=== PATIENT | male | born 1945 | race Caucasian/White ===

== ENCOUNTER 2016-06-18 13:16 | Inpatient (IN) | payer OTHER ==
[~2016-06-18] VITALS: Ht 182.9 cm; Wt 85.0 kg
[~2016-06-18 13:16] MED LIST: ACETAMINOPHEN325 M1 PO; ASPIRIN EC325 MG PO; ASPIRIN81 M2 PO; CARDIZEM CD,CA240 MG PO; DIGOXIN250 MCG PO; DULCOLAX10 MG PR; ELIQUIS5 MG PO; FLEET ENEMA-AD118 ML PR; FOLIC ACID1 MG PO; LEVAQUIN500 MG PO; LEVOFLOXACIN500 MG PO; LIPITOR20 MG PO; LISINOPRIL2.5 MG PO; LOPRESSOR25 MG PO; LORAZEPAM0.5 MG PO; MILK OF MAGN PO; MULTIVITAMIN1 EAC2 PO; NAPROXEN SODIU220 MG PO; SAW PALMETTO80 MG PO; THIAMINE HCL100 MG PO; Thiamine,Vitamin B1 PO; ZYRTEC10 M3 PO
[2016-06-18 14:03] LABS: EOSINOPHIL (%) 0.5 % (0-5); EOSINOPHIL COUNT 0.1 K/uL (0-0.3); HEMATOCRIT 33.6 % (38.0-50.0); IMMATURE GRANULOCYTE (%) 0.4 % (0.0-0.7); IMMATURE GRANULOCYTE COUNT 0.7 K/uL; MCH 29.5 PG (29.0-34.0); MCHC 32.4 G/DL (30.0-36.0); MCV 90.8 FL (86-99); MEAN PLAT.VOLUME 9.7 uM^3 (9.0-12.4); MONOCYTE (%) 5.4 % (3-12); MONOCYTE COUNT 0.8 K/uL (0-0.8); NEUTROPHIL (%) 80.8 % (45-76); NEUTROPHIL COUNT 12.7 K/uL (1.8-6.4); PLATELET COUNT 268 K/uL (156-360); RBC DIS.WIDTH-CV 14.6 % (11.8-14.6); RBC DIS.WIDTH-SD 46.4 % (39-53); WHITE BLOOD COUNT 15.7 K/uL (4.1-10.2)
[2016-06-18 14:20] LABS: CHLORIDE 112 mEq/L (99-109); POTASSIUM 4.7 mEq/L (3.7-5.4); SODIUM 142 mEq/L (136-147)
[2016-06-18 14:21] LABS: GLUCOSE 159 mg/dL (70-99)
[2016-06-18 14:23] LABS: ANION GAP 17 MEQ/L (2-14)
[2016-06-18 14:25] LABS: GFR ESTIMATE (CALCULATED) 46 mL/min/
[2016-06-18 14:26] LABS: UREA NITROGEN (BUN) 17 mg/dL (9-23)
[2016-06-18 14:31] LABS: TROP-I INTERPRETATION NEGATIVE; TROPONIN-I 0.04 ng/mL (0.0-0.30)
[2016-06-18] MEDS ORDERED: LO-DOSE ASPIRIN81 M2 PO (15:53)
[2016-06-18] MEDS ORDERED: SAW PALMETTO160 MG PO (15:54)
[2016-06-18] MEDS ORDERED: ADVIL,NUPRIN,M200 MG PO (15:54)
[2016-06-18 17:08] LABS: BASE EXCESS -6.4 mEq/L (-3 to +3); BICARBONATE 17.7 mEq/L (22-26); COMMENTS - BLOOD GASES A+C+; DEVICE HHFNC; FI02 40 %; METHEMOGLOBIN 1.2 % (0-1.5); O2 FLOW 30 L/MIN; PCO2 30 mm Hg (35-45); PO2 77 mm Hg (80-100); SITE RBR; TOTAL RESP RATE 22 resp/min; pH 7.38 (7.35-7.45)
[2016-06-18 18:05] VITALS: BP 142/74
[2016-06-18 18:23] VITALS: BP 142/74
[2016-06-18 20:00] VITALS: BP 129/75
[2016-06-18 21:06] LABS: INFLUENZA A VIRAL ANTIGEN NEGATIVE; INFLUENZA B VIRAL ANTIGEN NEGATIVE
[2016-06-18 21:21] LABS: TROP-I INTERPRETATION NEGATIVE; TROPONIN-I 0.05 ng/mL (0.0-0.30)
[2016-06-19] VITALS (7 sets, daily range): BP systolic 92–121; BP diastolic 56–91
[2016-06-19 03:01] LABS: TROP-I INTERPRETATION NEGATIVE; TROPONIN-I 0.03 ng/mL (0.0-0.30)
[2016-06-19 06:31] LABS: HEMATOCRIT 30.8 % (38.0-50.0); MCH 29.6 PG (29.0-34.0); MCHC 33.1 G/DL (30.0-36.0); MCV 89.3 FL (86-99); PLATELET COUNT 224 K/uL (156-360); RBC DIS.WIDTH-CV 14.8 % (11.8-14.6); RBC DIS.WIDTH-SD 48.5 % (39-53); RED BLOOD COUNT 3.45 M/uL (4.00-5.50); WHITE BLOOD COUNT 12.1 K/uL (4.1-10.2)
[2016-06-19 06:59] LABS: ANION GAP 14 MEQ/L (2-14); CHLORIDE 108 MEQ/L (99-109); GFR ESTIMATE (CALCULATED) 43 mL/min/; GLUCOSE 145 mg/dL (70-99); POTASSIUM 4.2 MEQ/L (3.7-5.4); SAMPLE HEMOLYSIS CHECK 0; SAMPLE ICTERIC CHECK 0; SAMPLE LIPEMIA CHECK 0; SODIUM 139 MEQ/L (136-147); UREA NITROGEN (BUN) 25 mg/dL (9-23)
[2016-06-20 03:00] VITALS: BP 115/90
[2016-06-20 07:16] LABS: ANION GAP 13 MEQ/L (2-14); CHLORIDE 107 MEQ/L (99-109); GFR ESTIMATE (CALCULATED) 40 mL/min/; GLUCOSE 145 mg/dL (70-99); POTASSIUM 4.4 MEQ/L (3.7-5.4); SAMPLE HEMOLYSIS CHECK 0; SAMPLE ICTERIC CHECK 0; SAMPLE LIPEMIA CHECK 0; SODIUM 138 MEQ/L (136-147)
[2016-06-20 07:17] LABS: HEMATOCRIT 31.4 % (38.0-50.0); MCH 29.1 PG (29.0-34.0); MCHC 32.8 G/DL (30.0-36.0); MCV 88.7 FL (86-99); PLATELET COUNT 277 K/uL (156-360); RBC DIS.WIDTH-SD 48.6 % (39-53); RED BLOOD COUNT 3.54 M/uL (4.00-5.50); UREA NITROGEN (BUN) 44 mg/dL (9-23)
[2016-06-20 07:18] VITALS: BP 118/96
[2016-06-20 07:21] LABS: WHITE BLOOD COUNT 17.3 K/uL (4.1-10.2)
[2016-06-20 11:14] LABS: ADD MIUA? NO; BILIRUBIN NEGATIVE; BLOOD NEGATIVE; COLOR YELLOW ((YELLOW)); GLUCOSE (STRIP) NEGATIVE; KETONES NEGATIVE; LEUKOCYTES NEGATIVE; NITRITE NEGATIVE; PH, URINE 5.5 (5-8); PROTEIN (STRIP) TRACE; SPECIFIC GRAVITY 1.024 (1.000-1.030); UROBILINOGEN 0.2 MG/DL (0.2-1.0)
[2016-06-20 12:10] VITALS: BP 98/65
[2016-06-20 16:39] VITALS: BP 132/73
[2016-06-20 19:00] VITALS: BP 120/76
[2016-06-20 23:33] VITALS: BP 131/73
[2016-06-21 02:44] VITALS: BP 117/66
[2016-06-21 06:39] LABS: HEMATOCRIT 30.7 % (38.0-50.0); MCHC 32.9 G/DL (30.0-36.0); MCV 88.2 FL (86-99); MEAN PLAT.VOLUME 10.3 uM^3 (9.0-12.4); PLATELET COUNT 297 K/uL (156-360); RBC DIS.WIDTH-CV 14.9 % (11.8-14.6); RBC DIS.WIDTH-SD 48.3 % (39-53); RED BLOOD COUNT 3.48 M/uL (4.00-5.50); WHITE BLOOD COUNT 14.9 K/uL (4.1-10.2)
[2016-06-21 07:15] LABS: ANION GAP 11 MEQ/L (2-14); CHLORIDE 111 MEQ/L (99-109); GFR ESTIMATE (CALCULATED) 46 mL/min/; GLUCOSE 152 mg/dL (70-99); POTASSIUM 4.4 MEQ/L (3.7-5.4); SAMPLE HEMOLYSIS CHECK 0; SAMPLE ICTERIC CHECK 0; SAMPLE LIPEMIA CHECK 0; SODIUM 139 MEQ/L (136-147); UREA NITROGEN (BUN) 49 mg/dL (9-23)
[2016-06-21 07:26] VITALS: BP 130/76
[2016-06-21 07:58] LABS: DIGOXIN < 0.3 ng/mL (0.8-2.0)
[2016-06-21] MEDS ORDERED: LEVAQUIN750 MG PO ×2 (09:26→15:46)
[2016-06-21] MEDS ORDERED: VENTOLIN HFA18 GM IH ×2 (09:33→15:46)
[2016-06-21 11:45] VITALS: BP 125/65
[2016-06-21] MEDS ORDERED: SPIRIVA RESPIMAT4 GM IH (14:59)
[2016-06-21] MEDS ORDERED: DILTIAZEM 24HR180 MG PO (15:00)
[2016-06-21] MEDS ORDERED: ELIQUIS5 MG PO (15:00)
[2016-06-21] MEDS ORDERED: ADVAIR HFA120 INHALA IH (15:00)
[2016-06-21] MEDS ORDERED: LOPRESSOR50 MG PO (15:00)
[2016-06-21] MEDS ORDERED: MEDROL DOSEPAK4 MG PO (15:01)
== END 2016-06-21 18:22 | disposition home health service (06) | DRG 189 ==
LOC: EME → EDBD 13:16 → EDOF 16:13 → 4EAST 16:13 → EDOF 16:13 → 4EAST 17:54
PROVIDERS: Emergency Medicine; Internal Medicine; Internal Medicine Pulmonary Disease; Physician Assistant Medical
DX: J96.01 Acute respiratory failure with hypoxia (principal); I48.2 Chronic atrial fibrillation; J44.0 Chronic obstructive pulmonary disease with (acute) lower respiratory infection; J18.9 Pneumonia, unspecified organism; J44.1 Chronic obstructive pulmonary disease with (acute) exacerbation; E87.2 Acidosis; I13.0 Hypertensive heart and chronic kidney disease with heart failure and stage 1 through stage 4 chronic kidney disease, or unspecified chronic kidney disease; I50.22 Chronic systolic (congestive) heart failure; N18.4 Chronic kidney disease, stage 4 (severe); I48.92 Unspecified atrial flutter; I45.2 Bifascicular block; I42.9 Cardiomyopathy, unspecified; I69.354 Hemiplegia and hemiparesis following cerebral infarction affecting left non-dominant side; I25.10 Atherosclerotic heart disease of native coronary artery without angina pectoris; D64.9 Anemia, unspecified; F01.50 Vascular dementia, unspecified severity, without behavioral disturbance, psychotic disturbance, mood disturbance, and anxiety; E78.5 Hyperlipidemia, unspecified; F17.200 Nicotine dependence, unspecified, uncomplicated; Z95.5 Presence of coronary angioplasty implant and graft; Z88.2 Allergy status to sulfonamides; Z88.7 Allergy status to serum and vaccine; Z79.82 Long term (current) use of aspirin; I25.2 Old myocardial infarction; Z91.14 Patient's other noncompliance with medication regimen
CPT/HCPCS: 36600; 71010; 80048; 80048 91; 80162; 81003; 82803; 83605; 84484; 85025; 85027; 87040; 87502; 93005; 94640; 94640 76; 94760; 94799; 99202; 99281; 99285; J0692; J1160; J1956; J2930; J7030; J7050; J7512; J7644

== ENCOUNTER 2016-07-04 11:49 | Inpatient (IN) | payer OTHER ==
[~2016-07-04] VITALS: Ht 182.9 cm; Wt 91.0 kg
[~2016-07-04 11:49] MED LIST changes: +ADVAIR HFA120 INHALA IH; +ADVIL,NUPRIN,M200 MG PO; +DILTIAZEM 24HR180 MG PO; +LEVAQUIN750 MG PO; +LO-DOSE ASPIRIN81 M2 PO; +LOPRESSOR50 MG PO; +MEDROL DOSEPAK4 MG PO; +SAW PALMETTO160 MG PO; +SPIRIVA RESPIMAT4 GM IH; +VENTOLIN HFA18 GM IH
[2016-07-04 12:44] LABS: HEMATOCRIT 33.6 % (38.0-50.0); MCH 28.8 PG (29.0-34.0); MCHC 32.4 G/DL (30.0-36.0); MCV 88.7 FL (86-99); RBC DIS.WIDTH-CV 15.3 % (11.8-14.6); RBC DIS.WIDTH-SD 48.6 % (39-53); RED BLOOD COUNT 3.79 M/uL (4.00-5.50); WHITE BLOOD COUNT 19.3 K/uL (4.1-10.2)
[2016-07-04 12:47] LABS: EOSINOPHIL (%) 1.3 % (0-5); EOSINOPHIL COUNT 0.3 K/uL (0-0.3); IMMATURE GRANULOCYTE (%) 0.6 % (0.0-0.7); IMMATURE GRANULOCYTE COUNT 1.1 K/uL; LYMPHOCYTE COUNT 2.7 K/uL (1.0-2.8); MONOCYTE (%) 3.5 % (3-12); MONOCYTE COUNT 0.7 K/uL (0-0.8); NEUTROPHIL (%) 80.7 % (45-76); NEUTROPHIL COUNT 15.6 K/uL (1.8-6.4)
[2016-07-04 13:00] LABS: CHLORIDE 110 mEq/L (99-109); POTASSIUM 4.7 mEq/L (3.7-5.4); SODIUM 140 mEq/L (136-147)
[2016-07-04 13:02] LABS: GLUCOSE 228 mg/dL (70-99)
[2016-07-04 13:03] LABS: ANION GAP 17 MEQ/L (2-14)
[2016-07-04 13:04] LABS: INTER. NORMALIZED RATIO 1.1; PROTHROMBIN TIME 11.5 (9.2-11.2); PTT 25.8 (25-32)
[2016-07-04 13:06] LABS: UREA NITROGEN (BUN) 17 mg/dL (9-23)
[2016-07-04 13:10] LABS: TROP-I INTERPRETATION NEGATIVE; TROPONIN-I 0.03 ng/mL (0.0-0.30)
[2016-07-04 13:25] LABS: GFR ESTIMATE (CALCULATED) 46 mL/min/
[2016-07-04] MEDS ORDERED: VENTOLIN HFA18 GM IH (13:44)
[2016-07-04] MEDS ORDERED: FLONASE16 G1 BOTH NARES (13:45)
[2016-07-04] MEDS ORDERED: ALEVE220 MG PO (13:45)
[2016-07-04] MEDS ORDERED: ZYRTEC10 M3 PO (13:46)
[2016-07-04 13:56] LABS: MEAN PLAT.VOLUME 9.4 uM^3 (9.0-12.4); PLAT.SUFFICIENCY ADEQUATE; PLATELET COUNT 251 K/uL (156-360); USER ID SDF
[2016-07-04 15:00] VITALS: BP 119/80
[2016-07-04 16:10] VITALS: BP 137/84
[2016-07-04 18:15] VITALS: BP 111/78
[2016-07-04 18:39] VITALS: BP 111/78
[2016-07-04 19:31] LABS: TROP-I INTERPRETATION NEGATIVE; TROPONIN-I 0.08 ng/mL (0.0-0.30)
[2016-07-04 20:43] VITALS: BP 110/80
[2016-07-05] VITALS (9 sets, daily range): BP systolic 70–140; BP diastolic 21–80
[2016-07-05 01:35] LABS: CARBOXY HGB 0.1 % (0-5); METHEMOGLOBIN 1.3 % (0-1.5); PCO2 30 mm Hg (35-45)
[2016-07-05 01:36] LABS: COMMENTS - BLOOD GASES C+; DEVICE VENTILATOR; FI02 100 %; MECHANICAL RATE 16 resp/min; MODE A/C; PEEP 8 CM/H20; PO2 532 mm Hg (80-100); SITE A LINE; TIDAL VOLUME 500 ML; TOTAL RESP RATE 16 resp/min
[2016-07-05 01:37] LABS: pH < 6.91 (7.35-7.45)
[2016-07-05 01:53] LABS: CHLORIDE 114 mEq/L (99-109); SODIUM 143 mEq/L (136-147)
[2016-07-05 01:56] LABS: ANION GAP 26 MEQ/L (2-14)
[2016-07-05 01:57] LABS: TOTAL BILIRUBIN 1.2 mg/dL (0.0-1.0)
[2016-07-05 01:58] LABS: ALKALINE PHOSPHATASE 75 IU/L (3-129)
[2016-07-05 02:00] LABS: UREA NITROGEN (BUN) 24 mg/dL (9-23)
[2016-07-05 02:01] LABS: EOSINOPHIL (%) 0.1 % (0-5); IMMATURE GRANULOCYTE (%) 4.2 % (0.0-0.7); IMMATURE GRANULOCYTE COUNT 4.3 K/uL; LYMPHOCYTE COUNT 1.1 K/uL (1.0-2.8); MCH 28.6 PG (29.0-34.0); MCHC 31.2 G/DL (30.0-36.0); MCV 91.9 FL (86-99); MEAN PLAT.VOLUME 9.5 uM^3 (9.0-12.4); MONOCYTE (%) 7.4 % (3-12); MONOCYTE COUNT 0.8 K/uL (0-0.8); NEUTROPHIL (%) 77.2 % (45-76); PLATELET COUNT 255 K/uL (156-360); RBC DIS.WIDTH-SD 51.4 % (39-53)
[2016-07-05 02:02] LABS: GLUCOSE 63 mg/dL (70-99)
[2016-07-05 02:03] LABS: GFR ESTIMATE (CALCULATED) 29 mL/min/; POTASSIUM 6.1 mEq/L (3.7-5.4)
[2016-07-05 02:05] LABS: INTER. NORMALIZED RATIO 1.7
[2016-07-05 02:06] LABS: METH RESISTANT S AUREUS PCR POSITIVE (NEGATIVE)
[2016-07-05 02:10] LABS: PROBE CHECK PASS
[2016-07-05 02:11] LABS: PROTHROMBIN TIME 17.9 (9.2-11.2); PTT 43.1 (25-32); WHITE BLOOD COUNT 10.3 K/uL (4.1-10.2)
[2016-07-05 02:13] LABS: TROP-I INTERPRETATION NEGATIVE; TROPONIN-I 0.12 ng/mL (0.0-0.30)
[2016-07-05 03:41] LABS: BASE EXCESS -20.3 mEq/L (-3 to +3); CARBOXY HGB 1.4 % (0-5); METHEMOGLOBIN 1.7 % (0-1.5); PCO2 31 mm Hg (35-45)
[2016-07-05 03:42] LABS: BICARBONATE 8.8 mEq/L (22-26); COMMENTS - BLOOD GASES C+; DEVICE VENTILATOR; FI02 30 %; MECHANICAL RATE 16 resp/min; MODE A/C; PEEP 8 CM/H20; PO2 145 mm Hg (80-100); SITE RF A LINE; TIDAL VOLUME 500 ML; TOTAL RESP RATE 16 resp/min; pH 7.06 (7.35-7.45)
[2016-07-05 07:02] LABS: EOSINOPHIL (%) 0 % (0-5); HEMATOCRIT 34.7 % (38.0-50.0); IMMATURE GRANULOCYTE COUNT 2.8 K/uL; LYMPHOCYTE COUNT 1.2 K/uL (1.0-2.8); MCH 28.5 PG (29.0-34.0); MCHC 31.1 G/DL (30.0-36.0); MCV 91.6 FL (86-99); MONOCYTE (%) 8.7 % (3-12); MONOCYTE COUNT 1.2 K/uL (0-0.8); NEUTROPHIL COUNT 11.4 K/uL (1.8-6.4); PLATELET COUNT 258 K/uL (156-360); RBC DIS.WIDTH-CV 15.9 % (11.8-14.6); RED BLOOD COUNT 3.79 M/uL (4.00-5.50); WHITE BLOOD COUNT 14.1 K/uL (4.1-10.2)
[2016-07-05 07:18] LABS: TROP-I INTERPRETATION NEGATIVE; TROPONIN-I 0.23 ng/mL (0.0-0.30)
[2016-07-05 07:52] LABS: INFLUENZA A VIRAL ANTIGEN NEGATIVE; INFLUENZA B VIRAL ANTIGEN NEGATIVE
[2016-07-05 08:07] LABS: HEMATOCRIT 33.9 % (38.0-50.0); MCH 28.7 PG (29.0-34.0); MCHC 31.3 G/DL (30.0-36.0); MCV 91.9 FL (86-99); MEAN PLAT.VOLUME 9.7 uM^3 (9.0-12.4); PLATELET COUNT 248 K/uL (156-360); RBC DIS.WIDTH-SD 51.1 % (39-53); RED BLOOD COUNT 3.69 M/uL (4.00-5.50); WHITE BLOOD COUNT 10.8 K/uL (4.1-10.2)
[2016-07-05 09:02] LABS: ALKALINE PHOSPHATASE 71 IU/L (3-129); ANION GAP 30 MEQ/L (2-14); CHLORIDE 107 MEQ/L (99-109); GFR ESTIMATE (CALCULATED) 26 mL/min/; SAMPLE HEMOLYSIS CHECK 0; SAMPLE ICTERIC CHECK 0; SAMPLE LIPEMIA CHECK 0; SODIUM 146 MEQ/L (136-147); TOTAL BILIRUBIN 1.5 MG/DL (0.0-1.0); UREA NITROGEN (BUN) 29 mg/dL (9-23)
[2016-07-05 09:03] LABS: GLUCOSE 95 mg/dL (70-99)
[2016-07-05 09:46] LABS: BASE EXCESS -10.5 mEq/L (-3 to +3); BICARBONATE 14.6 mEq/L (22-26); CARBOXY HGB 1.4 % (0-5); COMMENTS - BLOOD GASES C+ANA; DEVICE 840 PB; FI02 30 %; MECHANICAL RATE 16 resp/min; METHEMOGLOBIN 1.6 % (0-1.5); MODE AC; PCO2 29 mm Hg (35-45); PEEP 5 CM/H20; PO2 131 mm Hg (80-100); SITE ALINE; TIDAL VOLUME 500 ML; TOTAL RESP RATE 24 resp/min; pH 7.31 (7.35-7.45)
[2016-07-05 10:36] LABS: CHLORIDE 106 mEq/L (99-109); POTASSIUM 5.9 mEq/L (3.7-5.4); SODIUM 148 mEq/L (136-147)
[2016-07-05 10:40] LABS: ANION GAP 30 MEQ/L (2-14)
[2016-07-05 10:42] LABS: ALKALINE PHOSPHATASE 65 IU/L (3-129); GFR ESTIMATE (CALCULATED) 25 mL/min/
[2016-07-05 10:43] LABS: UREA NITROGEN (BUN) 29 mg/dL (9-23)
[2016-07-05 10:45] LABS: GLUCOSE 267 mg/dL (70-99)
[2016-07-05 10:46] LABS: TOTAL BILIRUBIN 1.5 mg/dL (0.0-1.0)
[2016-07-05 15:47] LABS: ADD MIUA? YES; BILIRUBIN SMALL; BLOOD LARGE; GLUCOSE (STRIP) NEGATIVE; KETONES NEGATIVE; LEUKOCYTES LARGE; NITRITE POSITIVE; PROTEIN (STRIP) 30; SPECIFIC GRAVITY 1.029 (1.000-1.030); UROBILINOGEN 0.2 MG/DL (0.2-1.0)
[2016-07-05 15:53] LABS: COLOR YELLOW ((YELLOW))
[2016-07-05 16:18] LABS: BACTERIA 4+; CASTS NONE SEEN /LPF; CRYSTALS NONE SEEN; EPITHELIAL CELLS 2+; MUCUS NONE SEEN; OTHER BUDDING YEAST; WHITE BLOOD CELLS TNTC /HPF (0-5)
[2016-07-05 16:53] LABS: ANION GAP 24 MEQ/L (2-14); CHLORIDE 102 MEQ/L (99-109); GFR ESTIMATE (CALCULATED) 30 mL/min/; GLUCOSE 257 mg/dL (70-99); MAGNESIUM 1.7 mg/dl (1.3-2.7); SAMPLE HEMOLYSIS CHECK 0; SAMPLE ICTERIC CHECK 0; SAMPLE LIPEMIA CHECK 0; SODIUM 145 MEQ/L (136-147); UREA NITROGEN (BUN) 32 mg/dL (9-23)
[2016-07-05 16:54] LABS: POTASSIUM 4.1 MEQ/L (3.7-5.4)
[2016-07-05 17:01] LABS: MCH 27.5 PG (29.0-34.0); MCV 88.7 FL (86-99); RBC DIS.WIDTH-SD 51.6 % (39-53); RED BLOOD COUNT 3.27 M/uL (4.00-5.50)
[2016-07-05 17:04] LABS: PLAT.SUFFICIENCY ADEQUATE; USER ID BW1
[2016-07-05 17:05] LABS: EOSINOPHIL (%) 0 % (0-5); IMMATURE GRANULOCYTE (%) 1.2 % (0.0-0.7); IMMATURE GRANULOCYTE COUNT 0.2 K/uL; LYMPHOCYTE COUNT 1.1 K/uL (1.0-2.8); MEAN PLAT.VOLUME 10.3 uM^3 (9.0-12.4); MONOCYTE (%) 4.5 % (3-12); MONOCYTE COUNT 0.9 K/uL (0-0.8); NEUTROPHIL (%) 88.9 % (45-76); NEUTROPHIL COUNT 17.6 K/uL (1.8-6.4); PLATELET COUNT 167 K/uL (156-360); WHITE BLOOD COUNT 19.8 K/uL (4.1-10.2)
[2016-07-05 18:32] LABS: POINT-OF-CARE METER ID UU14174217
[2016-07-05 22:36] LABS: ANION GAP 16 MEQ/L (2-14); CHLORIDE 104 MEQ/L (99-109); SAMPLE HEMOLYSIS CHECK 0; SAMPLE ICTERIC CHECK 0; SAMPLE LIPEMIA CHECK 0; SODIUM 144 MEQ/L (136-147); UREA NITROGEN (BUN) 23 mg/dL (9-23)
[2016-07-05 22:39] LABS: GFR ESTIMATE (CALCULATED) 46 mL/min/; GLUCOSE 95 mg/dL (70-99)
[2016-07-06] VITALS (8 sets, daily range): BP systolic 76–142; BP diastolic 35–65
[2016-07-06 00:52] LABS: POINT-OF-CARE METER ID UU13113731
[2016-07-06 04:44] LABS: EOSINOPHIL (%) 0 % (0-5); IMMATURE GRANULOCYTE (%) 0.7 % (0.0-0.7); IMMATURE GRANULOCYTE COUNT 1.8 K/uL; LYMPHOCYTE COUNT 0.9 K/uL (1.0-2.8); MCH 28.8 PG (29.0-34.0); MCHC 33.2 G/DL (30.0-36.0); MCV 86.7 FL (86-99); MEAN PLAT.VOLUME 10.2 uM^3 (9.0-12.4); MONOCYTE (%) 3.1 % (3-12); MONOCYTE COUNT 0.8 K/uL (0-0.8); NEUTROPHIL (%) 92.9 % (45-76); NEUTROPHIL COUNT 25.1 K/uL (1.8-6.4); PLATELET COUNT 167 K/uL (156-360); RBC DIS.WIDTH-CV 15.5 % (11.8-14.6); RBC DIS.WIDTH-SD 47.1 % (39-53); RED BLOOD COUNT 3.23 M/uL (4.00-5.50)
[2016-07-06 04:47] LABS: CHLORIDE 107 mEq/L (99-109); POTASSIUM 4.5 mEq/L (3.7-5.4); SODIUM 141 mEq/L (136-147)
[2016-07-06 05:09] LABS: MAGNESIUM 1.9 mg/dL (1.3-2.7)
[2016-07-06 05:10] LABS: GLUCOSE 79 mg/dL (70-99)
[2016-07-06 05:12] LABS: ANION GAP 12 MEQ/L (2-14)
[2016-07-06 05:14] LABS: GFR ESTIMATE (CALCULATED) 58 mL/min/
[2016-07-06 05:15] LABS: UREA NITROGEN (BUN) 17 mg/dL (9-23)
[2016-07-06 05:54] LABS: POINT-OF-CARE METER ID UU14174217
[2016-07-06 06:30] LABS: POINT-OF-CARE METER ID UU14174217
[2016-07-06 07:17] LABS: INTERNAL CONTROL VALID? YES
[2016-07-06 07:26] LABS: POINT-OF-CARE METER ID UU14174217
[2016-07-06 10:43] LABS: ANION GAP 10 MEQ/L (2-14); CHLORIDE 106 MEQ/L (99-109); GFR ESTIMATE (CALCULATED) 58 mL/min/; GLUCOSE 88 mg/dL (70-99); MAGNESIUM 1.9 mg/dl (1.3-2.7); POTASSIUM 4.7 MEQ/L (3.7-5.4); SAMPLE HEMOLYSIS CHECK 0; SAMPLE ICTERIC CHECK 0; SAMPLE LIPEMIA CHECK 0; SODIUM 141 MEQ/L (136-147); UREA NITROGEN (BUN) 17 mg/dL (9-23)
[2016-07-06 11:44] LABS: POINT-OF-CARE METER ID UU14174217; POINT-OF-CARE USER ID 606021424
[2016-07-06 15:50] LABS: HEMATOCRIT 27.6 % (38.0-50.0); MCH 28.5 PG (29.0-34.0); MCHC 32.6 G/DL (30.0-36.0); MCV 87.3 FL (86-99); MEAN PLAT.VOLUME 10.3 uM^3 (9.0-12.4); PLATELET COUNT 136 K/uL (156-360); RBC DIS.WIDTH-SD 51.1 % (39-53); RED BLOOD COUNT 3.16 M/uL (4.00-5.50); WHITE BLOOD COUNT 24.1 K/uL (4.1-10.2)
[2016-07-06 15:52] LABS: EOSINOPHIL (%) 0 % (0-5); IMMATURE GRANULOCYTE (%) 0.5 % (0.0-0.7); IMMATURE GRANULOCYTE COUNT 0.1 K/uL; LYMPHOCYTE COUNT 0.7 K/uL (1.0-2.8); MONOCYTE (%) 3.4 % (3-12); MONOCYTE COUNT 0.8 K/uL (0-0.8); NEUTROPHIL (%) 93.3 % (45-76); NEUTROPHIL COUNT 22.5 K/uL (1.8-6.4)
[2016-07-06 15:55] LABS: POINT-OF-CARE USER ID 606021424
[2016-07-06 16:10] LABS: ANION GAP 8 MEQ/L (2-14); CHLORIDE 105 MEQ/L (99-109); GFR ESTIMATE (CALCULATED) > 59 mL/min/; GLUCOSE 84 mg/dL (70-99); MAGNESIUM 2.1 mg/dl (1.3-2.7); POTASSIUM 4.8 MEQ/L (3.7-5.4); SAMPLE HEMOLYSIS CHECK 0; SAMPLE ICTERIC CHECK 0; SAMPLE LIPEMIA CHECK 0; SODIUM 139 MEQ/L (136-147); UREA NITROGEN (BUN) 14 mg/dL (9-23)
[2016-07-06 16:24] LABS: VANCOMYCIN, TROUGH 7.9 MCG/ML (10-20)
[2016-07-06 17:59] LABS: POINT-OF-CARE METER ID UU14174217; POINT-OF-CARE USER ID 606021424
[2016-07-06 22:51] LABS: ANION GAP 8 MEQ/L (2-14); CHLORIDE 106 MEQ/L (99-109); GFR ESTIMATE (CALCULATED) > 59 mL/min/; GLUCOSE 98 mg/dL (70-99); MAGNESIUM 2.4 mg/dl (1.3-2.7); POTASSIUM 4.7 MEQ/L (3.7-5.4); SAMPLE HEMOLYSIS CHECK 0; SAMPLE ICTERIC CHECK 0; SAMPLE LIPEMIA CHECK 0; SODIUM 138 MEQ/L (136-147); UREA NITROGEN (BUN) 14 mg/dL (9-23)
[2016-07-07] VITALS (7 sets, daily range): BP systolic 105–137; BP diastolic 42–81
[2016-07-07 00:01] LABS: POINT-OF-CARE USER ID RADDRS44
[2016-07-07 05:56] LABS: POINT-OF-CARE USER ID RADDRS44
[2016-07-07 05:59] LABS: EOSINOPHIL (%) 0.1 % (0-5); HEMATOCRIT 26.3 % (38.0-50.0); IMMATURE GRANULOCYTE (%) 0.3 % (0.0-0.7); IMMATURE GRANULOCYTE COUNT 0.1 K/uL; LYMPHOCYTE COUNT 1.2 K/uL (1.0-2.8); MCH 27.6 PG (29.0-34.0); MCHC 31.9 G/DL (30.0-36.0); MCV 86.5 FL (86-99); MEAN PLAT.VOLUME 10.7 uM^3 (9.0-12.4); MONOCYTE (%) 3.6 % (3-12); MONOCYTE COUNT 0.7 K/uL (0-0.8); NEUTROPHIL (%) 89.7 % (45-76); NEUTROPHIL COUNT 16.7 K/uL (1.8-6.4); PLATELET COUNT 135 K/uL (156-360); RBC DIS.WIDTH-CV 15.7 % (11.8-14.6); RBC DIS.WIDTH-SD 49.6 % (39-53); RED BLOOD COUNT 3.04 M/uL (4.00-5.50); WHITE BLOOD COUNT 18.6 K/uL (4.1-10.2)
[2016-07-07 06:24] LABS: ANION GAP 8 MEQ/L (2-14); CHLORIDE 106 MEQ/L (99-109); GFR ESTIMATE (CALCULATED) > 59 mL/min/; GLUCOSE 97 mg/dL (70-99); MAGNESIUM 2.3 mg/dl (1.3-2.7); POTASSIUM 4.4 MEQ/L (3.7-5.4); SAMPLE HEMOLYSIS CHECK 0; SAMPLE ICTERIC CHECK 0; SAMPLE LIPEMIA CHECK 0; SODIUM 138 MEQ/L (136-147); UREA NITROGEN (BUN) 13 mg/dL (9-23)
[2016-07-07 11:33] LABS: ANION GAP 8 MEQ/L (2-14); CHLORIDE 108 MEQ/L (99-109); GFR ESTIMATE (CALCULATED) > 59 mL/min/; GLUCOSE 104 mg/dL (70-99); MAGNESIUM 2.1 mg/dl (1.3-2.7); POTASSIUM 4.5 MEQ/L (3.7-5.4); SAMPLE HEMOLYSIS CHECK 0; SAMPLE ICTERIC CHECK 0; SAMPLE LIPEMIA CHECK 0; SODIUM 140 MEQ/L (136-147); UREA NITROGEN (BUN) 12 mg/dL (9-23)
[2016-07-07 16:34] LABS: EOSINOPHIL (%) 0.4 % (0-5); EOSINOPHIL COUNT 0.1 K/uL (0-0.3); HEMATOCRIT 25.8 % (38.0-50.0); IMMATURE GRANULOCYTE (%) 0.4 % (0.0-0.7); IMMATURE GRANULOCYTE COUNT 0.1 K/uL; LYMPHOCYTE COUNT 0.8 K/uL (1.0-2.8); MCHC 32.6 G/DL (30.0-36.0); MONOCYTE (%) 3.7 % (3-12); MONOCYTE COUNT 0.5 K/uL (0-0.8); NEUTROPHIL (%) 89.4 % (45-76); NEUTROPHIL COUNT 12.3 K/uL (1.8-6.4); PLATELET COUNT 118 K/uL (156-360); RBC DIS.WIDTH-CV 15.7 % (11.8-14.6); RBC DIS.WIDTH-SD 49.6 % (39-53); WHITE BLOOD COUNT 13.7 K/uL (4.1-10.2)
[2016-07-07 16:43] LABS: INTER. NORMALIZED RATIO 1.8; PROTHROMBIN TIME 18.3 (9.2-11.2)
[2016-07-07 16:55] LABS: ANION GAP 6 MEQ/L (2-14); CHLORIDE 106 MEQ/L (99-109); GFR ESTIMATE (CALCULATED) > 59 mL/min/; GLUCOSE 107 mg/dL (70-99); MAGNESIUM 2.1 mg/dl (1.3-2.7); POTASSIUM 4.3 MEQ/L (3.7-5.4); SAMPLE HEMOLYSIS CHECK 0; SAMPLE ICTERIC CHECK 0; SAMPLE LIPEMIA CHECK 0; SODIUM 137 MEQ/L (136-147); UREA NITROGEN (BUN) 13 mg/dL (9-23)
[2016-07-07 17:14] LABS: BASE EXCESS -0.4 mEq/L (-3 to +3); CARBOXY HGB 1.6 % (0-5); METHEMOGLOBIN 1.6 % (0-1.5); PO2 120 mm Hg (80-100)
[2016-07-07 17:15] LABS: COMMENTS - BLOOD GASES C+ANA; DEVICE 840 PB; FI02 30 %; MODE TC; PCO2 37 mm Hg (35-45); SITE ALINE; TOTAL RESP RATE 19 resp/min; pH 7.42 (7.35-7.45)
[2016-07-07 17:16] LABS: PEEP 5 CM/H20
[2016-07-07 22:56] LABS: ANION GAP 10 MEQ/L (2-14); CHLORIDE 106 MEQ/L (99-109); GFR ESTIMATE (CALCULATED) > 59 mL/min/; GLUCOSE 107 mg/dL (70-99); POTASSIUM 4.3 MEQ/L (3.7-5.4); SAMPLE HEMOLYSIS CHECK 0; SAMPLE ICTERIC CHECK 0; SAMPLE LIPEMIA CHECK 0; SODIUM 139 MEQ/L (136-147); UREA NITROGEN (BUN) 13 mg/dL (9-23)
[2016-07-08] VITALS (12 sets, daily range): BP systolic 83–140; BP diastolic 55–86
[2016-07-08 04:32] LABS: EOSINOPHIL (%) 0.3 % (0-5); HEMATOCRIT 26.9 % (38.0-50.0); IMMATURE GRANULOCYTE (%) 0.5 % (0.0-0.7); IMMATURE GRANULOCYTE COUNT 0.6 K/uL; LYMPHOCYTE COUNT 0.2 K/uL (1.0-2.8); MCH 28.3 PG (29.0-34.0); MCHC 32.7 G/DL (30.0-36.0); MCV 86.5 FL (86-99); MONOCYTE (%) 4.1 % (3-12); MONOCYTE COUNT 0.5 K/uL (0-0.8); NEUTROPHIL (%) 93.1 % (45-76); PLATELET COUNT 109 K/uL (156-360); RBC DIS.WIDTH-CV 15.4 % (11.8-14.6); RBC DIS.WIDTH-SD 47.5 % (39-53); RED BLOOD COUNT 3.11 M/uL (4.00-5.50); WHITE BLOOD COUNT 11.8 K/uL (4.1-10.2)
[2016-07-08 04:51] LABS: CHLORIDE 109 mEq/L (99-109); POTASSIUM 4.4 mEq/L (3.7-5.4); SODIUM 138 mEq/L (136-147)
[2016-07-08 04:53] LABS: GLUCOSE 148 mg/dL (70-99)
[2016-07-08 04:55] LABS: ANION GAP 9 MEQ/L (2-14)
[2016-07-08 04:57] LABS: GFR ESTIMATE (CALCULATED) > 59 mL/min/
[2016-07-08 04:58] LABS: UREA NITROGEN (BUN) 15 mg/dL (9-23)
[2016-07-08 05:43] LABS: VANCOMYCIN, TROUGH 16.4 MCG/ML (10-20)
[2016-07-08 11:12] LABS: INTER. NORMALIZED RATIO 1.6; PROTHROMBIN TIME 16.3 (9.2-11.2); PTT 65.5 (25-32)
[2016-07-08 11:17] LABS: ANION GAP 9 MEQ/L (2-14); CHLORIDE 106 MEQ/L (99-109); GFR ESTIMATE (CALCULATED) > 59 mL/min/; GLUCOSE 128 mg/dL (70-99); POTASSIUM 4.2 MEQ/L (3.7-5.4); SAMPLE HEMOLYSIS CHECK 0; SAMPLE ICTERIC CHECK 0; SAMPLE LIPEMIA CHECK 0; SODIUM 138 MEQ/L (136-147); UREA NITROGEN (BUN) 14 mg/dL (9-23)
[2016-07-08 14:18] LABS: BASE EXCESS 0.8 mEq/L (-3 to +3); BICARBONATE 25.3 mEq/L (22-26); COMMENTS - BLOOD GASES C+; CONTINUOUS POS AIRWAY PRESSURE 5 cm H2O; DEVICE 840 VENTILATOR; FI02 30 %; METHEMOGLOBIN 1.5 % (0-1.5); MODE TUBE COMPENSATION; PCO2 39 mm Hg (35-45); PO2 79 mm Hg (80-100); SITE RT FEMORAL ALINE; TOTAL RESP RATE 22 resp/min; pH 7.42 (7.35-7.45)
[2016-07-08 16:33] LABS: CHLORIDE 109 mEq/L (99-109); POTASSIUM 3.8 mEq/L (3.7-5.4); SODIUM 139 mEq/L (136-147)
[2016-07-08 16:34] LABS: MAGNESIUM 1.9 mg/dL (1.3-2.7)
[2016-07-08 16:35] LABS: GLUCOSE 128 mg/dL (70-99)
[2016-07-08 16:36] LABS: ANION GAP 10 MEQ/L (2-14)
[2016-07-08 16:39] LABS: GFR ESTIMATE (CALCULATED) > 59 mL/min/
[2016-07-08 16:40] LABS: UREA NITROGEN (BUN) 15 mg/dL (9-23)
[2016-07-08 22:39] LABS: CHLORIDE 107 mEq/L (99-109); POTASSIUM 4.4 mEq/L (3.7-5.4); SODIUM 137 mEq/L (136-147)
[2016-07-08 22:40] LABS: MAGNESIUM 2.1 mg/dL (1.3-2.7)
[2016-07-08 22:41] LABS: GLUCOSE 135 mg/dL (70-99)
[2016-07-08 22:42] LABS: ANION GAP 10 MEQ/L (2-14)
[2016-07-08 22:45] LABS: GFR ESTIMATE (CALCULATED) > 59 mL/min/
[2016-07-08 22:46] LABS: UREA NITROGEN (BUN) 15 mg/dL (9-23)
[2016-07-08 22:58] LABS: EOSINOPHIL (%) 0 % (0-5); HEMATOCRIT 25.7 % (38.0-50.0); IMMATURE GRANULOCYTE (%) 0.3 % (0.0-0.7); IMMATURE GRANULOCYTE COUNT 0.2 K/uL; LYMPHOCYTE COUNT 0.3 K/uL (1.0-2.8); MCHC 32.3 G/DL (30.0-36.0); MCV 86.8 FL (86-99); MEAN PLAT.VOLUME 10.4 uM^3 (9.0-12.4); MONOCYTE (%) 6.5 % (3-12); MONOCYTE COUNT 0.5 K/uL (0-0.8); NEUTROPHIL (%) 89.9 % (45-76); NEUTROPHIL COUNT 7.1 K/uL (1.8-6.4); PLATELET COUNT 101 K/uL (156-360); RBC DIS.WIDTH-CV 15.3 % (11.8-14.6); RBC DIS.WIDTH-SD 46.4 % (39-53); RED BLOOD COUNT 2.96 M/uL (4.00-5.50); WHITE BLOOD COUNT 7.9 K/uL (4.1-10.2)
[2016-07-09] VITALS (18 sets, daily range): BP systolic 96–175; BP diastolic 57–102
[2016-07-09 04:35] LABS: EOSINOPHIL (%) 0.1 % (0-5); HEMATOCRIT 24.2 % (38.0-50.0); IMMATURE GRANULOCYTE (%) 0.3 % (0.0-0.7); IMMATURE GRANULOCYTE COUNT 0.2 K/uL; LYMPHOCYTE COUNT 0.6 K/uL (1.0-2.8); MCH 28.7 PG (29.0-34.0); MCHC 33.5 G/DL (30.0-36.0); MCV 85.8 FL (86-99); MEAN PLAT.VOLUME 10.7 uM^3 (9.0-12.4); MONOCYTE (%) 7.5 % (3-12); MONOCYTE COUNT 0.6 K/uL (0-0.8); NEUTROPHIL (%) 83.9 % (45-76); NEUTROPHIL COUNT 6.1 K/uL (1.8-6.4); PLATELET COUNT 94 K/uL (156-360); RBC DIS.WIDTH-CV 15.4 % (11.8-14.6); RBC DIS.WIDTH-SD 46.7 % (39-53); RED BLOOD COUNT 2.82 M/uL (4.00-5.50); WHITE BLOOD COUNT 7.3 K/uL (4.1-10.2)
[2016-07-09 04:43] LABS: CHLORIDE 108 mEq/L (99-109); POTASSIUM 4.4 mEq/L (3.7-5.4); SODIUM 140 mEq/L (136-147)
[2016-07-09 04:44] LABS: MAGNESIUM 2.2 mg/dL (1.3-2.7)
[2016-07-09 04:45] LABS: GLUCOSE 129 mg/dL (70-99)
[2016-07-09 04:46] LABS: ANION GAP 12 MEQ/L (2-14)
[2016-07-09 04:49] LABS: GFR ESTIMATE (CALCULATED) > 59 mL/min/
[2016-07-09 04:50] LABS: UREA NITROGEN (BUN) 16 mg/dL (9-23)
[2016-07-09 11:21] LABS: ANION GAP 11 MEQ/L (2-14); CHLORIDE 103 MEQ/L (99-109); GFR ESTIMATE (CALCULATED) 58 mL/min/; GLUCOSE 137 mg/dL (70-99); POTASSIUM 4.2 MEQ/L (3.7-5.4); SAMPLE HEMOLYSIS CHECK 0; SAMPLE ICTERIC CHECK 0; SAMPLE LIPEMIA CHECK 0; SODIUM 136 MEQ/L (136-147); UREA NITROGEN (BUN) 16 mg/dL (9-23)
[2016-07-09 11:22] LABS: MAGNESIUM 2.4 mg/dl (1.3-2.7)
[2016-07-09 17:28] LABS: EOSINOPHIL (%) 0.1 % (0-5); HEMATOCRIT 23.3 % (38.0-50.0); IMMATURE GRANULOCYTE (%) 0.4 % (0.0-0.7); LYMPHOCYTE COUNT 0.5 K/uL (1.0-2.8); MCH 28.8 PG (29.0-34.0); MCHC 34.3 G/DL (30.0-36.0); MCV 83.8 FL (86-99); MONOCYTE (%) 5.9 % (3-12); MONOCYTE COUNT 0.6 K/uL (0-0.8); NEUTROPHIL (%) 89.2 % (45-76); NEUTROPHIL COUNT 9.3 K/uL (1.8-6.4); PLATELET COUNT 81 K/uL (156-360); RBC DIS.WIDTH-CV 15.7 % (11.8-14.6); RBC DIS.WIDTH-SD 48.2 % (39-53); RED BLOOD COUNT 2.78 M/uL (4.00-5.50); WHITE BLOOD COUNT 10.4 K/uL (4.1-10.2)
[2016-07-09 17:45] LABS: ANION GAP 11 MEQ/L (2-14); CHLORIDE 103 MEQ/L (99-109); GFR ESTIMATE (CALCULATED) > 59 mL/min/; GLUCOSE 173 mg/dL (70-99); MAGNESIUM 2.2 mg/dl (1.3-2.7); POTASSIUM 4.1 MEQ/L (3.7-5.4); SAMPLE HEMOLYSIS CHECK 0; SAMPLE ICTERIC CHECK 0; SAMPLE LIPEMIA CHECK 0; SODIUM 136 MEQ/L (136-147); UREA NITROGEN (BUN) 16 mg/dL (9-23)
[2016-07-09 23:53] LABS: CHLORIDE 105 mEq/L (99-109); SODIUM 137 mEq/L (136-147)
[2016-07-09 23:54] LABS: MAGNESIUM 2.1 mg/dL (1.3-2.7)
[2016-07-09 23:55] LABS: GLUCOSE 160 mg/dL (70-99)
[2016-07-09 23:56] LABS: ANION GAP 11 MEQ/L (2-14)
[2016-07-09 23:59] LABS: GFR ESTIMATE (CALCULATED) 43 mL/min/
[2016-07-10] VITALS (18 sets, daily range): BP systolic 80–122; BP diastolic 44–71
[2016-07-10] LABS: UREA NITROGEN (BUN) 21 mg/dL (9-23)
[2016-07-10 06:05] LABS: POINT-OF-CARE METER ID UU14174217
[2016-07-10 18:16] LABS: POINT-OF-CARE METER ID UU14174217
[2016-07-10 23:52] LABS: POINT-OF-CARE METER ID UU13113803
[2016-07-11] VITALS (14 sets, daily range): BP systolic 58–138; BP diastolic 31–86
[2016-07-11 05:52] LABS: POINT-OF-CARE METER ID UU14162636
[2016-07-11 07:30] LABS: ANION GAP 16 MEQ/L (2-14); CHLORIDE 99 MEQ/L (99-109); GFR ESTIMATE (CALCULATED) 17 mL/min/; GLUCOSE 166 mg/dL (70-99); POTASSIUM 4.8 MEQ/L (3.7-5.4); SAMPLE HEMOLYSIS CHECK 0; SAMPLE ICTERIC CHECK 0; SAMPLE LIPEMIA CHECK 0; SODIUM 134 MEQ/L (136-147)
[2016-07-11 07:33] LABS: UREA NITROGEN (BUN) 44 mg/dL (9-23)
[2016-07-11 08:44] LABS: EOSINOPHIL (%) 0.3 % (0-5); HEMATOCRIT 23.4 % (38.0-50.0); IMMATURE GRANULOCYTE (%) 0.4 % (0.0-0.7); LYMPHOCYTE COUNT 1.1 K/uL (1.0-2.8); MCH 28.2 PG (29.0-34.0); MCHC 34.6 G/DL (30.0-36.0); MCV 81.5 FL (86-99); MONOCYTE (%) 14.3 % (3-12); MONOCYTE COUNT 1.1 K/uL (0-0.8); NEUTROPHIL (%) 69.6 % (45-76); NEUTROPHIL COUNT 5.2 K/uL (1.8-6.4); RBC DIS.WIDTH-CV 16.4 % (11.8-14.6); RED BLOOD COUNT 2.87 M/uL (4.00-5.50); WHITE BLOOD COUNT 7.4 K/uL (4.1-10.2)
[2016-07-11 09:02] LABS: MEAN PLAT.VOLUME 11.4 uM^3 (9.0-12.4); PLAT.SUFFICIENCY DECREASED; PLATELET COUNT 83 K/uL (156-360); USER ID TLW
== END 2016-07-11 15:27 | DRG 308 ==
LOC: EME → EDBD 12:07 → 4WEST 14:11 → EDOF 14:11 → 4WEST 14:11 → 4EAST 18:03 → 4WEST 07-05 00:29
PROVIDERS: Emergency Medicine; Internal Medicine; Internal Medicine Cardiovascular Disease; Internal Medicine Nephrology
PROC: 5A1955Z Respiratory Ventilation, Greater than 96 Consecutive Hours (ICD-10-PCS; principal; 2016-07-05)
PROC: 0BH17EZ Insertion of Endotracheal Airway into Trachea, Via Natural or Artificial Opening (ICD-10-PCS; 2016-07-05)
PROC: 04HY32Z Insertion of Monitoring Device into Lower Artery, Percutaneous Approach (ICD-10-PCS; 2016-07-05)
PROC: 02HV33Z Insertion of Infusion Device into Superior Vena Cava, Percutaneous Approach (ICD-10-PCS; 2016-07-05)
PROC: 02HV33Z Insertion of Infusion Device into Superior Vena Cava, Percutaneous Approach (ICD-10-PCS; 2016-07-05)
PROC: 5A1D60Z (ICD-10-PCS; 2016-07-05)
PROC: 0F9430Z Drainage of Gallbladder with Drainage Device, Percutaneous Approach (ICD-10-PCS; 2016-07-05)
DX: I47.2 Ventricular tachycardia (principal); J69.0 Pneumonitis due to inhalation of food and vomit; A41.9 Sepsis, unspecified organism; R65.21 Severe sepsis with septic shock; K80.00 Calculus of gallbladder with acute cholecystitis without obstruction; J96.01 Acute respiratory failure with hypoxia; J96.02 Acute respiratory failure with hypercapnia; N17.0 Acute kidney failure with tubular necrosis; K72.00 Acute and subacute hepatic failure without coma; I63.40 Cerebral infarction due to embolism of unspecified cerebral artery; G81.94 Hemiplegia, unspecified affecting left nondominant side; E87.5 Hyperkalemia; E16.2 Hypoglycemia, unspecified; E87.2 Acidosis; I42.9 Cardiomyopathy, unspecified; I48.2 Chronic atrial fibrillation; I12.9 Hypertensive chronic kidney disease with stage 1 through stage 4 chronic kidney disease, or unspecified chronic kidney disease; N18.3 Chronic kidney disease, stage 3 (moderate); J44.1 Chronic obstructive pulmonary disease with (acute) exacerbation; I25.10 Atherosclerotic heart disease of native coronary artery without angina pectoris; F17.200 Nicotine dependence, unspecified, uncomplicated; D63.1 Anemia in chronic kidney disease; I45.2 Bifascicular block; R73.9 Hyperglycemia, unspecified; E83.39 Other disorders of phosphorus metabolism; Z79.01 Long term (current) use of anticoagulants; Z86.73 Personal history of transient ischemic attack (TIA), and cerebral infarction without residual deficits; Z95.5 Presence of coronary angioplasty implant and graft; Z88.2 Allergy status to sulfonamides; Z88.7 Allergy status to serum and vaccine; I25.2 Old myocardial infarction; Z79.82 Long term (current) use of aspirin; Z79.02 Long term (current) use of antithrombotics/antiplatelets; Z66 Do not resuscitate; Z51.5 Encounter for palliative care
CPT/HCPCS: 31500; 36600; 70450; 70551; 71010; 71250; 74176; 76705; 76770; 80048; 80053; 80069; 80202; 81003; 82150; 82330; 82803; 82948; 83605; 83690; 83735; 84100; 84484; 85025; 85025 91; 85027; 85610; 85730; 87040; 87070; 87075; 87205; 87449; 87502; 87641; 87801; 93005; 93306; 94002; 94003; 94640; 94640 76; 94644; 94760; 94799; 99202; 99281; 99285; C1752; C1769; C9113; J0171; J0282; J0456; J0610; J1630; J1644; J1815; J2250; J2270; J2543; J2704; J2930; J3370; J3475; J7030; J7050; J7070; P9045; S0028